=== PATIENT | female | born 1965 | race Asian ===

== ENCOUNTER → 2017-10-20 | Outpatient (CLI) | payer SELFPAY | END | disposition home or self-care (01) | LOC: LAB SHORT 11:14 → LAB 11:14 | PROVIDERS: Nurse Practitioner Women's Health | DX: Z11.3 Encounter for screening for infections with a predominantly sexual mode of transmission (principal); Z12.4 Encounter for screening for malignant neoplasm of cervix; Z11.51 Encounter for screening for human papillomavirus (HPV) | CPT/HCPCS: 87624; G0145 ==

== ENCOUNTER 2018-01-02 13:37 | Day surgery (SDC) | payer OTHER ==
[~2018-01-02] VITALS: Ht 154.9 cm; Wt 57.7 kg
== END 2018-01-02 16:23 | disposition home or self-care (01) ==
LOC: ORSCSDS 13:37
PROVIDERS: Internal Medicine Gastroenterology
PROC: 0DJD8ZZ Inspection of Lower Intestinal Tract, Via Natural or Artificial Opening Endoscopic (ICD-10-PCS; principal; 2018-01-02 14:30)
DX: Z12.11 Encounter for screening for malignant neoplasm of colon (principal); Z83.71 Family history of colonic polyps
CPT/HCPCS: J2250

== ENCOUNTER → 2019-03-11 | Outpatient (CLI) | payer OTHER ==
[2019-03-11 14:36] LABS: Candida species (DNA Probe) Negative (NEGATIVE); G. vaginalis (DNA Probe) Negative (NEGATIVE); T. vaginalis (DNA Probe) Negative (NEGATIVE)
[2019-03-15 14:07] LABS: HPV 16 Negative (Negative); HPV 18 Negative (Negative); HPV OTHER HR TYPES Negative (Negative)
== END | disposition home or self-care (01) ==
LOC: LAB SHORT 13:08 → LAB 13:08
PROVIDERS: Nurse Practitioner Women's Health
DX: Z01.419 Encounter for gynecological examination (general) (routine) without abnormal findings (principal); N76.0 Acute vaginitis
CPT/HCPCS: 87480; 87510; 87624; 87660; G0145

== ENCOUNTER 2025-02-25 15:40 | Emergency (ER) | payer OTHER ==
[~2025-02-25] VITALS: Ht 152.4 cm; Wt 59.0 kg
[2025-02-25 16:36] VITALS: BP 103/90
== END 2025-02-25 17:29 | disposition home or self-care (01) ==
LOC: ER 15:40
DX: S20.212A Contusion of left front wall of thorax, initial encounter (principal); W22.8XXA Striking against or struck by other objects, initial encounter; Z91.040 Latex allergy status
CPT/HCPCS: 71046; 99283-25